=== PATIENT | female | born 1955 | race Caucasian/White ===

== ENCOUNTER 2021-08-02 15:03 | Emergency (ER) | payer MEDICARE ==
[~2021-08-02] VITALS: Ht 157.5 cm; Wt 49.4 kg
[2021-08-02] MEDS ORDERED: ACETAMINOPHEN 325 MG TAB PO ONE (15:30)
[2021-08-02 15:33] LABS: BASOPHILS % 0.4 % (0.0-1.0); EOSINOPHILS % 0.3 % (0.0-6.0); LYMPHOCYTES # (AUTO) 0.8 (1.0-3.2); LYMPHOCYTES % 11.2 % (18.0-39.1); MEAN CORPUSCULAR HEMOGLOBIN 14.5 pg (28-32); MEAN CORPUSCULAR HGB CONC 23.4 g/dL (31-35); MEAN CORPUSCULAR VOLUME 61.7 fL (81-99); MONOCYTES # (AUTO) 0.7 (0.2-0.8); MONOCYTES % 10.8 % (4.4-11.3); NEUTROPHILS # (AUTO) 5.3 (2.1-6.9); PLATELET COUNT 238 x10e3/uL (140-360); RED BLOOD COUNT 2.56 x10e6/uL (3.6-5.1); RED CELL DISTRIBUTION WIDTH 20.8 % (11.7-14.4)
[2021-08-02 15:37] LABS: HEMATOCRIT 15.8 % (34.2-44.1); HEMOGLOBIN 3.7 g/dL (12.0-16.0)
[2021-08-02 15:44] LABS: INR 1.03; PROTHROMBIN TIME 14.4 seconds (11.9-14.5)
[2021-08-02 15:45] LABS: PARTIAL THROMBOPLASTIN TIME 27.5 seconds (23.8-35.5)
[2021-08-02 15:52] LABS: ALBUMIN 3.4 g/dL (3.5-5.0); ALBUMIN/GLOBULIN RATIO 1.1 (0.8-2.0); ANION GAP 14.8 mmol/L (8-16); CALCIUM 8.7 mg/dL (8.4-10.2); CREATININE, SERUM 0.81 mg/dL (0.57-1.11); POTASSIUM 3.8 mmol/L (3.5-5.1)
[2021-08-02 15:58] LABS: CREATINE KINASE MB 0.6 ng/mL (0-5.0)
[2021-08-02 19:00] VITALS: BP 127/61
== END 2021-08-02 19:11 | disposition other institution (70) ==
LOC: ER 15:10
DX: D64.9 Anemia, unspecified (principal); R07.9 Chest pain, unspecified; I10 Essential (primary) hypertension; I25.10 Atherosclerotic heart disease of native coronary artery without angina pectoris; I73.9 Peripheral vascular disease, unspecified; Z20.822 Contact with and (suspected) exposure to COVID-19; R94.31 Abnormal electrocardiogram [ECG] [EKG]
CPT/HCPCS: 36415; 71045; 80053; 82550; 82553; 83880; 84484; 85025; 85610; 85730; 86850; 86900; 93005; 99284; U0002